=== PATIENT | male | born 1995 | race Caucasian/White ===

== ENCOUNTER 2017-02-18 11:37 | Emergency (ER) | payer OTHER ==
[2017-02-18] MEDS ORDERED: Adacel (T-DAP) 0.5 ML VIAL ONE (12:41)
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
[2017-02-18] MEDS ORDERED: Lidocaine 1% PF 5 ML VIAL ONE ×2 (12:49)
[2017-02-18] MEDS ORDERED: Bacitracin Zinc 1 Packet ONE (14:26)
[2017-02-18] MEDS ORDERED: Acetaminophen/Codeine 30-300mg Tablet ONE (14:56)
== END 2017-02-18 14:46 | disposition home or self-care (01) ==
LOC: ERS 11:37
DX: S01.112A Laceration without foreign body of left eyelid and periocular area, initial encounter (principal); V13.4XXA Pedal cycle driver injured in collision with car, pick-up truck or van in traffic accident, initial encounter; Y92.481 Parking lot as the place of occurrence of the external cause
CPT/HCPCS: 12011; 90715; J2001

== ENCOUNTER 2017-02-19 19:51 | Emergency (ER) | payer OTHER | END 2017-02-19 22:27 | disposition home or self-care (01) | LOC: ERS 19:51 | DX: F07.81 Postconcussional syndrome (principal) | CPT/HCPCS: 99283 ==